=== PATIENT | male | born 1970 | race Caucasian/White ===

== ENCOUNTER 2021-09-05 08:46 | Emergency (ER) | payer MEDICAID ==
[~2021-09-05] VITALS: Ht 175.3 cm; Wt 90.0 kg
[2021-09-05] MEDS ORDERED: IPRATROPIUM BROMIDE (0.02%) 0.5MG/2.5ML NEB HHN STA (09:01)
[2021-09-05] MEDS ORDERED: PREDNISONE 20MG TABLET PO STA (09:01)
[2021-09-05] MEDS ORDERED: ALBUTEROL (0.083%) 2.5MG/3ML NEB HHN STA (09:01)
[2021-09-05 09:33] LABS: BASOPHILS % 1.2 % (0.0-2.0); EOSINOPHILS % 5.7 % (0.0-5.0); HEMATOCRIT. 41.3 % (42.0-52.0); HEMOGLOBIN. 14.1 g/dL (14.0-18.0); LYMPHOCYTES % 20.7 % (20.0-50.0); MEAN CORPUSCULAR HEMOGLOBIN 29.2 pg (28.0-32.0); MEAN CORPUSCULAR VOLUME 85.3 fL (80.0-94.0); MEAN PLATELET VOLUME 8.2 fl (7.4-10.4); MONOCYTES % 6.3 % (2.0-8.0); NEUTROPHILS % 66.1 % (40.0-76.0); PLATELET 280 x1000/uL (130-400); RED BLOOD CELL COUNT 4.84 mill/uL (4.7-6.1); RED CELL DISTRIBUTION WIDTH 14.6 % (11.6-14.6)
[2021-09-05 09:40] LABS: CHLORIDE 104 mEq/L (98-107)
[2021-09-05] MEDS ORDERED: ALBU6.7H9 INH (10:34)
[2021-09-05] MEDS ORDERED: P50 MT (10:34)
[2021-09-05 11:41] VITALS: BP 152/89
== END 2021-09-05 11:43 | disposition home or self-care (01) ==
LOC: ER 09:01
DX: J44.1 Chronic obstructive pulmonary disease with (acute) exacerbation (principal)
CPT/HCPCS: 36415; 71045; 80053; 85025; 94640; 99284; J7512; Z7610